=== PATIENT | female | born 1950 | race Caucasian/White ===

== ENCOUNTER 2016-11-06 08:16 | Emergency (ER) | payer OTHER | END 2016-11-06 11:14 | disposition home or self-care (01) | LOC: FER 08:16 | DX: S21.111A Laceration without foreign body of right front wall of thorax without penetration into thoracic cavity, initial encounter (principal); S00.85XA Superficial foreign body of other part of head, initial encounter; I10 Essential (primary) hypertension; E11.9 Type 2 diabetes mellitus without complications; E78.5 Hyperlipidemia, unspecified; F17.200 Nicotine dependence, unspecified, uncomplicated; V49.50XA Passenger injured in collision with unspecified motor vehicles in traffic accident, initial encounter; Y92.410 Unspecified street and highway as the place of occurrence of the external cause; Z79.82 Long term (current) use of aspirin; Z79.899 Other long term (current) drug therapy | CPT/HCPCS: 99284 ==

== ENCOUNTER → 2020-12-11 | Day surgery (SDC) | payer MEDICARE, OTHER ==
[~2020-12-11] VITALS: Ht 160 cm; Wt 82.7 kg
[~2020-12-11] MED LIST: ASPIRIN EC81 MG PO; BENTYL10 MG PO; EFFEXOR XR150 MG PO; LASIX20 MG PO; LIPITOR40 MG PO; LISINOPRIL-HCT1 EAC2 PO; METFORMIN HCL500 MG PO; MIRAPEX0.25 MG PO; MOBIC7.5 MG PO; NORVASC5 MG PO; PRILOSEC20 MG PO; TRULICITY0.75 MG/0. IJ; ZYRTEC10 M3 PO
== END | disposition home or self-care (01) ==
LOC: FAS 07:43
DX: K58.1 Irritable bowel syndrome with constipation (principal); I10 Essential (primary) hypertension; E11.9 Type 2 diabetes mellitus without complications; E78.00 Pure hypercholesterolemia, unspecified; J44.9 Chronic obstructive pulmonary disease, unspecified; G47.30 Sleep apnea, unspecified; K21.9 Gastro-esophageal reflux disease without esophagitis; F41.9 Anxiety disorder, unspecified; F32.A Depression, unspecified; F17.200 Nicotine dependence, unspecified, uncomplicated; Z79.82 Long term (current) use of aspirin; Z79.84 Long term (current) use of oral hypoglycemic drugs; Z79.899 Other long term (current) drug therapy; Z98.51 Tubal ligation status; Z72.89 Other problems related to lifestyle; Z80.1 Family history of malignant neoplasm of trachea, bronchus and lung
CPT/HCPCS: 82962; J2250; J2704; J7120

== ENCOUNTER 2021-03-21 15:51 | Inpatient (IN) | payer MEDICARE, OTHER ==
[2021-03-21 16:35] LABS: BASOPHIL 0.2 % (0-2); EOSINOPHIL 0 % (0-7); HCT 41.3 % (37.0-47.0); HGB 13.2 g/dl (12.5-16.0); LYMPHOCYTE 15.1 % (15-48); MCH 26.9 pg (25.0-31.0); MCV 84.1 fL (78.0-100.0); MONOCYTE 10.2 % (0-12); MPV 11.3 fL (6.0-9.5); NEUTROPHIL 74.2 % (41-80); NRBC 0; PLT 240 K/uL (150-400); RBC 4.91 M/uL (4.20-5.40); RDW 14.7 % (11.5-14.0); WBC 6.5 K/uL (4.0-10.5)
[2021-03-21 16:51] LABS: ALBUMIN 3.3 g/dL (3.4-5.0); BILIRUBIN - TOTAL 0.3 mg/dL (0.2-1.0); BUN/CREAT RATIO (CALC) 32.9 RATIO; CREATININE 0.82 mg/dL (0.51-0.95); GLOBULIN (CALCULATION) 4.4 g/dL; POTASSIUM 3.3 mmol/L (3.5-5.1); TOTAL PROTEIN 7.7 g/dL (6.4-8.2)
[2021-03-21 18:15] LABS: INFLUENZA A NAA NEGATIVE (NEGATIVE)
[2021-03-21 18:17] LABS: CORONAVIRUS 2019 SARS-COV-2 POSITIVE (NEGATIVE)
--- NOTE | 2021-03-21 19:25 | NUR ---
PATIENT CALLED RN TO ROOM AND ASKED FOR AMA FORMS. PATIENT'S DAUGHTER IS AN INSPECT[employer] AT [employer] AND THEY WOULD RATHER RECIEVE CARE THERE. PETEY MILLER IS AWARE. AMA FORMS SIGNED AT [id number]. -JOSH,RN
== END 2021-03-21 19:22 | disposition left against medical advice (07) | DRG 177 ==
LOC: FER 15:51 → FMS 17:13
PROVIDERS: Physician Assistant; ADMIT Internal Medicine
PROC: 8E0ZXY6 Isolation (ICD-10-PCS; principal; 2021-03-21)
DX: U07.1 COVID-19 (principal); J12.82 Pneumonia due to coronavirus disease 2019; J44.1 Chronic obstructive pulmonary disease with (acute) exacerbation; J44.0 Chronic obstructive pulmonary disease with (acute) lower respiratory infection; R09.02 Hypoxemia; I10 Essential (primary) hypertension; E11.9 Type 2 diabetes mellitus without complications; F17.210 Nicotine dependence, cigarettes, uncomplicated; K21.9 Gastro-esophageal reflux disease without esophagitis; E78.5 Hyperlipidemia, unspecified; Z90.49 Acquired absence of other specified parts of digestive tract; Z98.890 Other specified postprocedural states; Z79.84 Long term (current) use of oral hypoglycemic drugs
CPT/HCPCS: 36415; 36600; 71045; 80053; 82803; 84484; 85025; 93005; J0456; J0696; J7050; U0002